=== PATIENT | male | born 1980 | race Caucasian/White ===

== ENCOUNTER 2023-09-10 13:57 | Emergency (ER) | payer BC ==
[~2023-09-10] VITALS: Ht 175.3 cm; Wt 102.1 kg
[2023-09-10] MEDS ORDERED: predniSONE 20 MG TABLET ONE (15:20)
[2023-09-10] MEDS ORDERED: GUAIFENESIN/D-METHORPHAN HB 5 ML UDC ONE (15:20)
[2023-09-10] MEDS: predniSONE 20 MG TABLET PO ONE (15:34)
[2023-09-10] MEDS: GUAIFENESIN/D-METHORPHAN HB 5 ML UDC PO ONE (15:34)
[2023-09-10] MEDS ORDERED: ALBUTEROL FS 2.5 MG/3 ML VIAL.NEB ONE (15:37)
[2023-09-10] MEDS ORDERED: IPRATROPIUM NEB FS 0.5 MG/2.5 ML AMPUL.NEB ONE (15:37)
[2023-09-10 15:43] VITALS: O2SAT 95
[2023-09-10] MEDS: IPRATROPIUM NEB FS 0.5 MG/2.5 ML AMPUL.NEB NEB ONE (15:43)
[2023-09-10] MEDS: ALBUTEROL FS 2.5 MG/3 ML VIAL.NEB NEB ONE (15:43)
[2023-09-10] MEDS ORDERED: AZIT500T PO (16:30)
[2023-09-10 16:50] VITALS: O2SAT 97
[2023-09-10] MEDS ORDERED: IPRA3AMP23 IH (16:52)
[2023-09-10] MEDS ORDERED: ALBU18HF2 INH (16:52)
[2023-09-10] MEDS ORDERED: PRED50TA PO (16:52)
[2023-09-10 17:10] VITALS: BP 124/67; TEMP 98.2; O2SAT 97
== END 2023-09-10 17:10 | disposition home or self-care (01) ==
LOC: ER 14:09
DX: J45.901 Unspecified asthma with (acute) exacerbation (principal); Z79.899 Other long term (current) drug therapy; Z20.822 Contact with and (suspected) exposure to COVID-19
CPT/HCPCS: 99285; 71045; 87426; 87804 ×2; 94644; J7512

== ENCOUNTER 2023-10-05 13:06 | Emergency (ER) | payer BC ==
[~2023-10-05] VITALS: Ht 167.6 cm; Wt 102.1 kg
[~2023-10-05 13:06] MED LIST: ALBU18HF2 INH; AZIT500T PO; IPRA3AMP23 IH; PRED50TA PO
[2023-10-05 13:15] VITALS: BP 151/95; TEMP 98.8; O2SAT 98
== END 2023-10-05 15:00 | disposition home or self-care (01) ==
LOC: ER 13:10
DX: S90.32XA Contusion of left foot, initial encounter (principal); Z79.899 Other long term (current) drug therapy; I10 Essential (primary) hypertension; W20.8XXA Other cause of strike by thrown, projected or falling object, initial encounter; Y93.89 Activity, other specified; Y92.89 Other specified places as the place of occurrence of the external cause; Y99.8 Other external cause status
CPT/HCPCS: 73630-TC